=== PATIENT | female | born 1945 | race African-American/Black ===

== ENCOUNTER 2016-09-24 08:30 | Outpatient (RCR) | payer OTHER | END 2016-10-05 | disposition home or self-care (01) | LOC: PTY 08:30 | DX: G89.29 Other chronic pain (principal); M25.562 Pain in left knee; M25.561 Pain in right knee | CPT/HCPCS: 97035; 97110; 97140; 97162; G0283 ==

== ENCOUNTER 2016-10-08 10:00 | Outpatient (RCR) | payer OTHER | END 2016-11-05 | disposition home or self-care (01) | LOC: PTY 10:00 | DX: G89.29 Other chronic pain (principal) | CPT/HCPCS: 97035; 97110; 97140; G0283 ==

== ENCOUNTER 2016-11-26 08:30 | Outpatient (RCR) | payer OTHER | END 2016-12-06 | disposition home or self-care (01) | LOC: PTY 08:30 | DX: G89.29 Other chronic pain (principal); M25.562 Pain in left knee; M25.561 Pain in right knee | CPT/HCPCS: 97035; 97110; 97140; 97530; G0283 ==

== ENCOUNTER 2016-12-28 08:00 | Outpatient (RCR) | payer OTHER | END 2017-01-05 | disposition home or self-care (01) | LOC: PTY 08:00 | DX: G89.29 Other chronic pain (principal); M25.562 Pain in left knee; M25.561 Pain in right knee | CPT/HCPCS: 97035; 97110; 97140; G0283 ==